=== PATIENT | female | born 1995 | race Caucasian/White ===

== ENCOUNTER → 2016-12-10 | Outpatient (CLI) | payer OTHER ==
[~2016-12-10] MED LIST: COLACE-DPS100 MG PO; LAN-O-SOOTHE7 GM TP; MOTRIN-DPS800 MG PO; NIPPLECREAM TP; PRENATAL VITAM1 EAC4 PO; VITAMIN D-32000 UNI1 PO
== END | disposition home or self-care (01) ==
LOC: RAD.S 12:34
DX: Z36 Encounter for antenatal screening of mother (principal); Z3A.19 19 weeks gestation of pregnancy

== ENCOUNTER 2017-01-07 16:25 | Outpatient (CLI) | payer OTHER ==
[2017-04-27] MEDS ORDERED: MOTRIN-DPS800 MG PO (09:23)
[2017-04-27] MEDS ORDERED: PRENATAL VITAM1 EAC4 PO (09:23)
[2017-04-27] MEDS ORDERED: LAN-O-SOOTHE7 GM TP (09:24)
[2017-04-27] MEDS ORDERED: VITAMIN D-32000 UNI1 PO (09:24)
[2017-04-27] MEDS ORDERED: NIPPLECREAM TP (09:24)
[2017-04-27] MEDS ORDERED: COLACE-DPS100 MG PO (09:24)
== END 2017-01-07 17:35 | disposition home or self-care (01) ==
LOC: BC 16:25 → 2LDRP 16:25 → BC 17:35
DX: O99.89 Other specified diseases and conditions complicating pregnancy, childbirth and the puerperium (principal); R10.9 Unspecified abdominal pain; Z3A.23 23 weeks gestation of pregnancy